=== PATIENT | male | born 1970 | race Caucasian/White ===

== ENCOUNTER 2020-01-07 10:37 | Emergency (ER) | payer OTHER ==
[2020-01-07 10:51] VITALS: TEMP 98; BMI 28.5
[2020-01-07] MEDS ORDERED: FAMOTIDINE 20 MG/50 ML IVPB 20 MG/50 ML MG IVPB ONE ×2 (11:12→11:25)
[2020-01-07] MEDS ORDERED: MAG HYDROX/AL HYDROX/SIMETH -MYLANTA- ORAL SUSPENSION PO ONE (11:12)
--- NOTE | 2020-01-07 11:12 | PDOC ---
History of Present Illness - General Chief Complaint: Chest Pain Stated Complaint: MID CHEST PRESSURE AFTER INGESTING VITAMINS Time Seen by Provider: 01/07/20 10:56 History Source: Patient Exam Limitations: No Limitations - History of Present Illness Initial Comments: 01/07/20 10:58 HPI 49-year-old male with no significant medical history presenting with midsternal chest pressure this morning beginning at 10:00 AM. He states he was taking a small white pill (Propecia) for his hair, along with other OTC multivitamins; after swallowing them without water, he developed discomfort in the middle of his chest. Associated with dizziness/lightheadedness, difficulty catching his breath and nausea, but no shortness of breath. He took some Aleve without much relief. currently 06/16. No trauma. No exertional component. He does have lower neck/upper back pain, does have C3-4 disc disease. He was watching [employer] debate last night, had some beer and wine. He was up until 4AM, was not feeling very well, working on some projects. this morning only had an apple and drank some coffee. Denies fever, chills, SOB, palpitation, weakness, V, D, abdominal pain, bladder and bowel problems, focal weakness/paresthesias, leg swelling/pain, rash. No sick contacts or travel. No new changes in medications. No suspicious food intake Allergies: None Past Medical History/ none PSH: knee surgery Social history: Lives with family. No tobacco, or drug use. Social ETOH use Meds: as documented in EMR Family history: denies sudden deaths, DE or CAD in family Review of systems Constitutional: no fevers or chills. No weakness HEENT: no headache. No congestion. No visual/hearing disturbances. +dizziness. CVS: no syncope. +chest pain. Resp: no sob. No cough. Gastrointestinal: no abdominal pain, vomiting, diarrhea. +nausea. Genitourinary: no urinary sx, hematuria. no urgency or frequency. MUSCULOSKELETAL: No joint pain and swelling. No neck or back pain. SKIN: no redness or skin changes, no discharge, no rash. No wounds. Hematologic: no easy bruising/bleeding. NEUROLOGIC: No headache, LOC or altered mental status. No weakness, numbness or tingling. Psych: no anxiety or depression Allergic/Immunologic: no allergies All other systems reviewed and negative, or as documented in HPI. Physical exam General: Well appearing, awake and alert, NAD. HEENT: NCAT, PERRL, EOMI, clear conjunctiva, anicteric, moist mucus membranes, clear oropharynx, no oral lesions.. Neck: neck supple, FROM Resp: CTAB, normal and even respirations, no respiratory distress CVS: +bradycardic, no murmurs, 2+ peripheral pulses throughout, no peripheral edema Abdomen: soft, NTND, no rebound or guarding. Back: nontender, normal inspection and ROM MSK: no edema, HAIR x4, ROM intact. No clubbing or cyanosis. normal bulk and tone. Extremities: no calf tenderness Neuro: alert, oriented appropriately; no focal neurologic deficits Psych: Calm and cooperative Skin: warm and well perfused, cap refill <2 sec, normal color, no rash or skin discoloration. 01/07/20 11:13 01/07/20 15:54 01/07/20 15:55 Past History - Medical History Allergies/Adverse Reactions: Allergies Allergy/AdvReac Type Severity Reaction Status Date / Time No Known Allergies Allergy Verified 01/07/20 10:40 Home Medications: Ambulatory Orders Multivitamins [Multivit ([facility])] 1 tab PO DAILY 09/29/15 Anemia: No Asthma: No Cancer: No Cardiac Disorders: No CVA: No COPD: No CHF: No Dementia: No Diabetes: No GI Disorders: No Disorders: No HTN: No Hypercholesterolemia: No Liver Disease: No Seizures: No Thyroid Disease: No - Surgical History Abdominal Surgery: No Appendectomy: No Cardiac Surgery: No Cholecystectomy: No Lung Surgery: No Neurologic Surgery: No Orthopedic Surgery: Yes (RIGHT HAND FINGER PINNING) - Psycho-Social/Smoking History Smoking History: Never smoked Information on smoking cessation initiated: No - Substance Abuse Hx (Audit-C & DAST Scrn) How often the patient has a drink containing alcohol: 4 0r more times/wk Number of drinks the patient has on a typical day: 3 or 4 How often the patient has six or more drinks on one occasion: Less than monthly Score: In Men: 4 or > Positive; In Women: 3 or > Positive: 6 Screen Result (Pos requires Nsg. Audit-10AR): Positive In the last yr the pt used illegal drug/Rx for NonMed reason: No Score: Yes response is considered Positive: 0 Screen Result (Positive result requires Nsg. DAST-10): Negative *Physical Exam - Vital Signs Last Vital Signs Temp Pulse Resp BP Pulse Ox 98 F 56 L 16 139/92 100 01/07/20 10:39 01/07/20 10:39 01/07/20 10:39 01/07/20 10:39 01/07/20 10:39 Heart Score/ECG Review - History History: Slightly suspicious - Electrocardiogram EKG: Normal - Age Age: 45-65 - Risk Factors Based on the list above the patient has:: No risk factors known - Troponin Troponin: </= normal limit - Score Heart Score - Total: 1 #1 ECG reviewed & interpreted by me at: 10:45 General ECG Interpretation: Sinus Rhythm, Normal Intervals 01/07/20 11:18 EKG cardiac 49 bpm, no interval abnormalities, narrow QRS, ST and T wave segments and morphology normal. Lateral T wave inversion in lead III only. No contiguously changes. Upsloping ST segments, no elevations or depressions. #2 ECG reviewed & interpreted by me at: 14:00 General ECG Interpretation: Sinus Rhythm, Normal Rate, Normal Intervals Compared to previous ECG there are: No significant change ED Treatment Course - LABORATORY CBC & Chemistry Diagram: 01/07/20 11:15 01/07/20 11:13 Medical Decision Making - Medical Decision Making 01/07/20 11:19 Vital Signs Temp Pulse Resp BP Pulse Ox 98 F 56 L 16 139/92 100 01/07/20 10:39 01/07/20 10:39 01/07/20 10:39 01/07/20 10:39 01/07/20 10:39 DDx chest pain: ACS, coronary vasospasm, NSTEMI, arrhythmia, unstable angina, PE, dissection, PUD, esophageal spasm, GERD, gastritis, costochondritis, pneumonia, pleurisy, pericarditis/myocarditis. dehydration, electrolyte/metabolic derangements. pill esophagitis. Considered but clinically doubt based on HPI and PE: Low suspicion for pulmonary embolism or dissection. Interpreted by ED Physician: CXR (1 view): no acute abnormality: no infiltrates, bones appear intact and structures normal alignment, cardiac silhouette within normal limits. no free air under diaphragm, no pneumothorax. EKG sinus bradycardia, no interval abnormalities, narrow QRS, ST and T wave segments and morphology normal. TWI in Lead III only. Chest pain HEART score 1 which denotes Low risk and probability for ACS, less than 1.7% risk for MACE at 4-6 wks no known medical history analgesia here, pepcid and maalox, reassess. labs and lytes wnl. initial trop is neg repeat trop/ekg unchanged neg. 01/07/20 13:00 No evidence of ACS, pericarditis, myocarditis, pulmonary embolism, pneumothorax, pneumonia, Zoster, or esophageal perforation. Historically not abrupt in onset, tearing or ripping, pulses symmetric, no evidence of aortic dissection. clinically improved, no cp or sob. tele monitor with sinus rhythm. could also be likely esophageal spasm/pill esophagitis. told to eat food prior to taking medications, vitamins. take with water. avoid nsaids on empty stomach also likely compounded by use of nsaid on empty stomach and dyspepsia. Pt to be discharged in stable condition. Patient and family made aware of clinical impression, treatment recommendations and disposition plan, return precautions discussed (including but not limited to new or persistent/worsening symptoms, pain, fevers, or signs of infection, chest pain, respiratory distress, inability to tolerate oral intake, dehydration, syncope, or neurologic changes). Follow up with PMD and/or specialist as recommended, follow up information provided, take medications as instructed for duration of time. continue with supportive care, avoid triggers and precipitants. All questions answered to patient's satisfaction and expressed understanding and comfort with this. At the time of discharge, the patient is alert, clinically improved, tolerating po and verbalizes understanding of instructions, satisfied with the care received and felt comfortable with the plan. Patient does not suffer from an acute life- threatening medical condition at this time and is safe for outpatient follow- up. 01/07/20 15:54 Discharge - Discharge Information Problems reviewed: Yes Clinical Impression/Diagnosis: Chest pain Qualifiers: Chest pain type: unspecified Qualified Code(s): R07.9 - Chest pain, unspecified Condition: Stable Disposition: HOME - Admission No - Follow up/Referral Referrals: Aneesh Hammer MD [Primary Care Provider] - Aristides Jimenez MD [Staff Physician] - Rubén Alonso MD [Staff Physician] - Aden Ingram MD [Staff Physician] - - Patient Discharge Instructions Patient Printed Discharge Instructions: DI for Chest Pain Additional Instructions: 1) Please follow-up with your primary care doctor in the next 1-2 days. Please call tomorrow for for any urgent issues. you should follow up with your trauma manager, referrals given or you can inquire with your primary doctor Dr Hammer 2) You were given a copy of the tests performed today. Please bring the results with you and review them with your primary care doctor. Your laboratory / imaging results were normal, including x ray and your cardiac enzymes 3) If you have any worsening of symptoms or any other concerns please return to the ED immediately. Return if worsening symptoms including fevers, headache, vomiting, visual or hearing disturbances, abdominal pain, chest pain, shortness of breath, syncope, dehydration, inability to take things by mouth/vomiting, altered mental status, or worsening concerning symptoms. 4) Please continue taking your home medications as directed. Stay well hydrated and rest adequately. Make an appointment. If you cannot follow-up with your primary care doctor please return to the ED - Post Discharge Activity
[2020-01-07] MEDS ORDERED: MAG HYDROX/AL HYDROX/SIMETH 30 ML UNIT-DOSE CUP ONE (11:25)
[2020-01-07 11:59] LABS: ALBUMIN 4.1 g/dl (3.4-5.0); BILIRUBIN,TOTAL 1.2 mg/dl (0.2-1); CALCIUM 8.6 mg/dl (8.5-10); MAGNESIUM 1.9 mg/dL (1.8-2.4); POTASSIUM 4.8 mmol/L (3.5-5.1); TOT PROT 7.1 g/dl (6.4-8.2)
[2020-01-07 12:06] LABS: BASO % 1.4 % (0-2.0); EOS % 2.8 % (0-4.5); HEMATOCRIT 42.1 % (35.4-49); HEMOGLOBIN 13.8 GM/dl (11.7-16.9); LYMPH % 17.2 % (8-40); MCH 31.5 pg (25.7-33.7); MCHC 32.8 g/dl (32.0-35.9); MEAN CELL VOLUME 95.9 fl (80-96); MEAN PLT VOLUME 9.5 fl (7.5-11.1); MONO % 8.8 % (3.8-10.2); NEUT % 69.8 % (42.8-82.8); PLATELET COUNT 166 K/MM3 (134-434); RBC 4.39 M/mm3 (4.00-5.60); RDW 12.2 % (11.9-15.9); WHITE BLOOD COUNT 6.9 K/mm3 (4.0-10.8)
[2020-01-07] MEDS ORDERED: ACETAMINOPHEN 325 MG TABLET (FP) PO ONE (13:03)
[2020-01-07] MEDS ORDERED: ACETAMINOPHEN 325 MG TABLET (FP) ONE (13:24)
[2020-01-07 14:33] VITALS: BP 117/66; PULSE 65
--- NOTE | 2020-01-08 14:00 | EKG ---
Test Reason : Blood Pressure : / mmHG Vent. Rate : 067 BPM Atrial Rate : 067 BPM P-R Int : 156 ms QRS Dur : 106 ms QT Int : 418 ms P-R-T Axes : 064 071 025 degrees QTc Int : 441 ms NORMAL SINUS RHYTHM NORMAL ECG WHEN COMPARED WITH ECG OF 07-JAN-2020 10:43, QT HAS LENGTHENED Confirmed by KIKO MARROUQIN MD ([id number]) on 01/08/2020 2:00:33 PM Referred By: JUAN ESCOBAR Confirmed By:KIKO MARROQUIN MD
--- NOTE | 2020-01-08 14:00 | EKG ---
Test Reason : Blood Pressure : / mmHG Vent. Rate : 049 BPM Atrial Rate : 049 BPM P-R Int : 162 ms QRS Dur : 110 ms QT Int : 426 ms P-R-T Axes : 057 071 029 degrees QTc Int : 384 ms SINUS BRADYCARDIA OTHERWISE NORMAL ECG NO PREVIOUS ECGS AVAILABLE Confirmed by KIKO MARROQUIN MD ([id number]) on 01/08/2020 2:00:36 PM Referred By: JUAN ESCOBAR Confirmed By:KIKO MARROQUIN MD
== END 2020-01-07 14:38 | disposition home or self-care (01) ==
LOC: FER 10:37
PROC: 3E033GC Introduction of Other Therapeutic Substance into Peripheral Vein, Percutaneous Approach (ICD-10-PCS; principal; 2020-01-07)
DX: R07.9 Chest pain, unspecified (principal)
CPT/HCPCS: 36415; 71045-TC-FY; 80053; 83735; 84484; 85025; 93005; 99285-25